=== PATIENT | female | born 1970 | race African-American/Black ===

== ENCOUNTER 2022-10-19 15:47 | Emergency (ER) | payer MEDICAID, OTHER ==
[~2022-10-19] VITALS: Ht 157.5 cm; Wt 91.0 kg
[2022-10-19 15:51] VITALS: BP 167/83
[2022-10-19] MEDS ORDERED: METOCLOPRAMIDE HCL 10MG/2ML VIAL IV NR (18:30)
[2022-10-19] MEDS ORDERED: SODIUM CHLORIDE 0.9% 1,000 ML IV NR (18:30)
[2022-10-19] MEDS ORDERED: FAMOTIDINE 20MG/2ML VIAL IV NR (18:30)
[2022-10-19] MEDS ORDERED: ONDANSETRON HCL 4MG/2ML INJ IV NR (18:30)
[2022-10-19 19:02] LABS: BASOPHILS % 0.6 % (0.0-2.0); EOSINOPHILS % 0.1 % (0.0-5.0); HEMATOCRIT. 43.3 % (36.0-48.0); HEMOGLOBIN. 14.3 g/dL (12.0-16.0); LYMPHOCYTES % 9.8 % (20.0-50.0); MEAN CORPUSCULAR HEMOGLOBIN 31.3 pg (28.0-32.0); MEAN CORPUSCULAR VOLUME 94.5 fL (81.0-99.0); MEAN PLATELET VOLUME 8.7 fl (7.4-10.4); MONOCYTES % 1.9 % (2.0-8.0); NEUTROPHILS % 87.6 % (40.0-76.0); PLATELET 468 x1000/uL (130-400); RED BLOOD CELL COUNT 4.58 mill/uL (4.2-5.4); RED CELL DISTRIBUTION WIDTH 14.4 % (11.6-14.6)
[2022-10-19 19:11] LABS: CHLORIDE 103 mEq/L (98-107)
== END 2022-10-19 20:13 | disposition home or self-care (01) ==
LOC: ER 16:22
DX: R51.9 Headache, unspecified (principal); R11.2 Nausea with vomiting, unspecified; Z87.19 Personal history of other diseases of the digestive system
CPT/HCPCS: 36415; 80053; 83690; 84484; 85025; 96374; 96375; 99284; J2405; J2765; J3490